=== PATIENT | female | born 1985 | race Caucasian/White ===

== ENCOUNTER 2021-02-09 09:03 | Emergency (ER) | payer OTHER ==
[~2021-02-09] VITALS: Ht 160 cm; Wt 54.4 kg
[~2021-02-09 09:03] MED LIST: ARIP20TA1 PO; HYDR-1096 PO; PARO40TA65 PO; QUET200T PO; [UNRECOGNIZED DRUG - CODE] PO
--- NOTE | 2021-02-09 09:04 | NUR ---
BIBA BLS TO BED 3
[2021-02-09 09:09] VITALS: BP 130/88
--- NOTE | 2021-02-09 09:23 | NUR ---
35 yo f BIBA from home c/o tremors worse than usual x 1 hr. pt on psych meds and usually get tremors as side effect of medications. aylin , denies pain. as per amr, pt aox4 en route to ed. in ed, pt aox1. not in respiratory distress. with noted tremors on left upper extremities and spastic extension of left foot. 2 siderails up. ermd made aware of pt status. pmh: schizophrenia, depression, bipolar meds: propranolol, lithium, haloperidol, trazadone nka
[2021-02-09] MEDS ORDERED: diphenhydrAMINE 50 MG/ML VIAL IVP ONE (09:25)
[2021-02-09] MEDS ORDERED: LORazepam 2 MG/ML VIAL IVP ONE (09:25)
[2021-02-09] MEDS ORDERED: NACL 0.9% 1,000 ML IV ONE (09:25)
--- NOTE | 2021-02-09 10:10 | NUR ---
silvina and novel swabs done. handed to mill laborer.
[2021-02-09 10:20] LABS: BASOPHILS % (AUTO) 0.6 % (0.0-2.0); EOSINOPHILS # (AUTO) 0.3 K/uL (0-0.4); EOSINOPHILS % (AUTO) 4.1 % (0.0-4.0); HEMATOCRIT 37.5 % (36-48); MEAN CORPUSCULAR HEMOGLOBIN 31 pg (27-31); MEAN CORPUSCULAR HGB CONC 35 g/dL (33-37); MEAN CORPUSCULAR VOLUME 89.6 fL (80-94); MONOCYTES # (AUTO) 0.8 K/uL (0.8-1.0); MONOCYTES % (AUTO) 9.9 % (1.7-9.3); NEUTROPHILS % (AUTO) 61.4 % (42.2-75.2); PLATELET COUNT (AUTO) 483 K/uL (140-450); RED BLOOD CELL COUNT(AUTO) 4.19 MIL/uL (4.20-5.40); RED CELL DISTRIBUTION WIDTH 13.3 % (11.6-13.7); WHITE BLOOD COUNT (AUTO) 8.2 K/uL (4.8-10.8)
[2021-02-09 11:41] LABS: ACETAMINOPHEN < 0.5 ug/ml (10-30); ANION GAP 12.5 (8-16); ASPARTATE AMINOTRANSFERASE 20 U/L (15-37); CARBON DIOXIDE 24.5 mmol/L (21-32); CHLORIDE 99 mmol/L (98-107); CREATININE 0.8 mg/dL (0.6-1.3); GFR ARICAN-AMERICAN 104 mL/min (>90); GLUCOSE 91 mg/dL (74-106); LIPASE 80 U/L (73-393); SALICYLATE < 2.8 mg/dL (2.8-20.0); SODIUM SERUM 132 mmol/L (136-145); TOTAL BILIRUBIN 0.2 mg/dL (0.0-1.0); UREA NITROGEN, BLOOD 2 mg/dL (7-18)
[2021-02-09 12:08] LABS: APPEARANCE,URINE CLEAR (CLEAR); BILIRUBIN,URINE NEGATIVE (NEGATIVE); BLOOD, URINE 1+ (NEGATIVE); COLOR,URINE YELLOW (YELLOW); LEUKOCYTE ESTERASE ,URINE TRACE (NEGATIVE); NITRITE, URINE NEGATIVE (NEGATIVE); UGLUCOSE NEGATIVE (NEGATIVE)
[2021-02-09 12:25] LABS: RBC,URINE 11-20 (MOD) /HPF (0-5); WBC,URINE 0-5 /HPF (0-5)
[2021-02-09 12:27] LABS: BARBITURATE, URINE NEGATIVE ng/ml (NEG <=200); BENZODIAZEPINE, URINE POSITIVE ng/mL (NEG <=200); CANNABINOID, URINE NEGATIVE ng/mL (NEG <=50); COCAINE, URINE NEGATIVE ng/mL (NEG <=300); OPIATE, URINE NEGATIVE ng/mL (NEG <=2000); PHENCYCLIDINE SCREEN,URINE NEGATIVE ng/mL (NEG <=25)
[2021-02-09] MEDS ORDERED: DIGOXIN 0.25 MG TAB PO ONE (12:55)
[2021-02-09] MEDS ORDERED: cefTRIAXone 1,000 MG VIAL ONE (13:22)
[2021-02-09] MEDS ORDERED: DIPH25TA53 PO (13:56)
[2021-02-09] MEDS ORDERED: CEPH-588 PO (13:56)
[2021-02-09] MEDS ORDERED: LORA-476 PO (13:56)
[2021-02-09 15:30] VITALS: BP 130/88
--- NOTE | 2021-02-09 15:32 | NUR ---
Patient discharged with v/s stable. Written and verbal after care instructions given and explained. Patient alert, oriented and verbalized understanding of instructions. Ambulatory with steady gait. All questions addressed prior to discharge. ID band removed. Patient advised to follow up with PMD. Rx of CEPHALEXIN, DIPHENHYDRAMINE, LORAZEPAM given. Patient educated on indication of medication including possible reaction and side effects. Opportunity to ask questions provided and answered.
== END 2021-02-09 15:32 | disposition home or self-care (01) ==
LOC: MED 09:03
DX: R25.1 Tremor, unspecified (principal); Z20.822 Contact with and (suspected) exposure to COVID-19; N39.0 Urinary tract infection, site not specified; R41.0 Disorientation, unspecified; F20.9 Schizophrenia, unspecified; F32.9 Major depressive disorder, single episode, unspecified; F17.290 Nicotine dependence, other tobacco product, uncomplicated; Z79.899 Other long term (current) drug therapy
CPT/HCPCS: 36415; 70450; 71045; 80053; 80178; 80305; 81001; 81025; 82550; 83690; 84703; 85025; 87086; 87426; 93005; 96361; 96365; 96375; 99285; G0480; G0482; J0696; J1200; J2060; J7030; J7060; U0003

== ENCOUNTER 2021-10-12 09:00 | Observation (INO) | payer OTHER ==
[~2021-10-12] VITALS: Ht 162.6 cm; Wt 62.6 kg
[~2021-10-12 09:00] MED LIST changes: +CEPH-588 PO; +DIPH25TA53 PO; +LORA-476 PO
--- NOTE | 2021-10-12 09:02 | NUR ---
PT BIBA TAKEN TO ER BED 11.
[2021-10-12] MEDS ORDERED: LORazepam 2 MG/ML VIAL ONE (09:03)
[2021-10-12] MEDS ORDERED: LORazepam 2 MG/ML VIAL IVP ONE ×2 (09:05→09:30)
[2021-10-12] MEDS ORDERED: NACL 0.9% 1,000 ML IV ONE ×2 (09:05→10:15)
--- NOTE | 2021-10-12 09:15 | NUR ---
BLOODWORK, URINE, AND COVID [place] COLLECTED AND WALKED TO LAB
[2021-10-12 09:16] VITALS: BP 154/119
--- NOTE | 2021-10-12 09:20 | NUR ---
PT REMOVED IV DONE BY FIRE IN FIELD. KATHARINA APPLIED AND NEW IV ESTABLISHED
--- NOTE | 2021-10-12 09:20 | NUR ---
36 Y/O FEMALE BIBA FROM HOME ALOC S/P POSSIBLE SYNCOPAL EPISODE UNWITNISSED. PT IS GCS 9. A&OX0. BS 191. IV TO R AC 18G PLACED BY FIRE. PT ACTIVELY HAVING TREMOR LIKE MOVEMENTS. PT UNABLE TO ANSWER QUESTIONS AT THIS TIME, BUT ABLE TO TRACK WITH EYES. PUPPILS DILATED AND SLUGGISH. SKIN DIAPHORTIC AND HOT. SKIN INTACT AND WARM TO TOUCH. UNKNOWN MEDICAL HX AND UNKNOWN AND DRUG USE. PMH: UNOBTAINABLE ALLERGIES: UNOBTAINABLE
[2021-10-12] MEDS ORDERED: diphenhydrAMINE 50 MG/ML VIAL IVP ONE (09:35)
[2021-10-12 09:47] LABS: APPEARANCE,URINE CLEAR (CLEAR); BILIRUBIN,URINE NEGATIVE (NEGATIVE); BLOOD, URINE NEGATIVE (NEGATIVE); COLOR,URINE YELLOW (YELLOW); LEUKOCYTE ESTERASE ,URINE NEGATIVE (NEGATIVE); NITRITE, URINE NEGATIVE (NEGATIVE); UGLUCOSE NEGATIVE (NEGATIVE)
[2021-10-12 09:48] LABS: BASOPHILS # (AUTO) 0.2 K/uL (0.00-0.22); EOSINOPHILS # (AUTO) 0.1 K/uL (0-0.4); EOSINOPHILS % (AUTO) 0.4 % (0.0-4.0); HEMATOCRIT 40.5 % (36-48); HEMOGLOBIN 13.6 g/dL (12.0-16.0); LYMPHOCYTES # (AUTO) 1.8 K/uL (2.5-16.5); LYMPHOCYTES % (AUTO) 9.8 % (20.5-51.1); MEAN CORPUSCULAR HEMOGLOBIN 30 pg (27-31); MEAN CORPUSCULAR HGB CONC 34 g/dL (33-37); MEAN CORPUSCULAR VOLUME 90.2 fL (80-94); MONOCYTES # (AUTO) 1.4 K/uL (0.8-1.0); MONOCYTES % (AUTO) 7.5 % (1.7-9.3); NEUTROPHILS # (AUTO) 14.8 K/uL (1.8-7.7); NEUTROPHILS % (AUTO) 81.3 % (42.2-75.2); PLATELET COUNT (AUTO) 667 K/uL (140-450); RED BLOOD CELL COUNT(AUTO) 4.48 MIL/uL (4.20-5.40); WHITE BLOOD COUNT (AUTO) 18.2 K/uL (4.8-10.8)
--- NOTE | 2021-10-12 09:54 | NUR ---
PT TOOTH FELL OUT BEDSIDE. TOOTH COLLECTED AND PLACED INTO URINE CUP.
--- NOTE | 2021-10-12 10:01 | NUR ---
PT BELONGINGS PUT IN BAG , BAG AT BEDSIDE.
--- NOTE | 2021-10-12 10:02 | NUR ---
PT TAKEN TO CT Addendum: 10/12/21 at 1002 by PHSEP PT TAKEN TO CT VIA UMBERTO
[2021-10-12 10:05] LABS: BARBITURATE, URINE NEGATIVE ng/ml (NEG <=200); BENZODIAZEPINE, URINE NEGATIVE ng/mL (NEG <=200)
[2021-10-12 10:06] LABS: CANNABINOID, URINE NEGATIVE ng/mL (NEG <=50); COCAINE, URINE NEGATIVE ng/mL (NEG <=300); OPIATE, URINE NEGATIVE ng/mL (NEG <=2000); PHENCYCLIDINE SCREEN,URINE NEGATIVE ng/mL (NEG <=25)
--- NOTE | 2021-10-12 10:07 | NUR ---
PT BROTHER BEDSIDE
[2021-10-12 10:15] LABS: ALBUMIN 4.7 g/dL (3.4-5.0); ANION GAP 19.5 (8-16); CARBON DIOXIDE 21.4 mmol/L (21-32); CREATININE 1.3 mg/dL (0.6-1.3); MAGNESIUM 2.2 mg/dL (1.8-2.4); PHOSPHORUS 5.6 mg/dL (2.5-4.9); POTASSIUM 4.9 mmol/L (3.5-5.1); TOTAL BILIRUBIN 0.4 mg/dL (0.0-1.0)
[2021-10-12] MEDS ORDERED: PROP20TA28 PO (10:20)
[2021-10-12] MEDS ORDERED: BENZ2TAB27 PO (10:20)
[2021-10-12] MEDS ORDERED: TRAZ-343 PO (10:20)
[2021-10-12] MEDS ORDERED: HAL5 PO (10:20)
[2021-10-12] MEDS ORDERED: VENL150C4 PO (10:20)
[2021-10-12] MEDS ORDERED: QUET400T PO (10:20)
[2021-10-12] MEDS ORDERED: cefTRIAXone 1,000 MG VIAL ONE (10:21)
[2021-10-12 10:27] LABS: ACETAMINOPHEN < 0.5 ug/ml (10-30); SALICYLATE < 2.8 mg/dL (2.8-20.0)
--- NOTE | 2021-10-12 10:30 | NUR ---
PT BROTHER REQUESTED TO TAKE PT BELONGINGS. BELONGINGS IN BAG AND GIVEN TO BROTHER
[2021-10-12] MEDS ORDERED: ONDANSETRON 4 MG/2 ML VIAL IVP PRN (11:15)
[2021-10-12] MEDS ORDERED: ACETAMINOPHEN 325 MG TAB PO PRN (11:15)
--- NOTE | 2021-10-12 11:18 | NUR ---
CALLED [employer] ARTIST [facility], BED GIVEN 123B, CN STS "PT CANNOT GO TO THE FLOOR BECAUSE PRIMARY NURSE IS DISCHARGING ANOTHER PATIENT."
[2021-10-12] MEDS: NACL 0.9% 1,000 ML IV SCH ×2 (11:40→20:27)
--- NOTE | 2021-10-12 12:03 | NUR ---
pt provided with lunch tray bedside. pt PO challenged bedside and able to swallow without issues
--- NOTE | 2021-10-12 12:08 | NUR ---
Patient will be admitted to care of DR. NICOLE. Admited to TELE. Will go to room 123B. Belongings list completed. Report to CATIE SANTOS.
[2021-10-12 12:15] VITALS: BP 112/62
--- NOTE | 2021-10-12 12:15 | NUR ---
RECEIVED PT FROM ER NURSE VIA UMBERTO. PT IS A&O4. RESPIRATIONS EVEN AND UNLABORED ON ROOM AIR. NO SIGNS OF DISTRESS. DENIES PAIN. PT IS ON TELE MONITOR. HR 122 ST. SKIN IS DRY AND WARM TO TOUCH. IV LAC G18 PATENT AND INTACT INFUSING NS 100 ML/HR. ABDOMEN IS SOFT, NON-DISTENDED WITH ACTIVE BOWEL SOUNDS ON ALL 4 QUADS. NO EDEMA NOTED ON ALL EXTREMITIES. PT IS WITH FAMILY MEMBER AT BED SIDE. PT ATE LUNCH. SAFETY PRECAUTIONS IN PLACE. CALL LIGHT WITHIN REACH. WILL CONTINUE TO MONITOR.
--- NOTE | 2021-10-12 14:12 | NUR ---
PT IN ROOM RESTING WITH FAMILY MEMBERS AT BEDSIDE. BREATHING EVEN AND UNLABORED. NO SIGNS OF DISTRESS NOTED. UPPER EXTREMITIES SHAKING. WILL CONTINUE TO MONITOR.
[2021-10-12] MEDS ORDERED: LORazepam 2 MG/ML VIAL IVP PRN (14:40)
[2021-10-12 16:00] VITALS: BP 152/92
--- NOTE | 2021-10-12 16:05 | NUR ---
SPOKE TO POISON CONTROL REP REGARDING THE PT. WAS ASKED ABOUT SEVERAL LAB TEST RESULTS. SAID THAT HER LAB RESULTS LOOK GOOD. RECOMMENDED ORDER FOR CPK. DR NICOLE WAS INFORMED.
--- NOTE | 2021-10-12 19:20 | NUR ---
ENDORSED PT TO FARROWING MANAGER NURSE FOR CONTINUITY OF CARE. ALL NEEDS MET THROUGHOUT SHIFT. PT IS STABLE.
--- NOTE | 2021-10-12 19:25 | NUR ---
RECEIVED BEDSIDE REPORT FROM DAY SHIFT RN FOR CONTINUITY OF CARE. PT IS AWAKE WITH BROTHER BY BEDSIDE. PT IS NOT IN ANY DISTRESS. BREATHING RHYTHMIC AND UNLABORED. PT HAS LEFT FOREARM 18 GAUGE WITH NS 100 ML/HR. PT HAS NO COMPLAINS AT THIS TIME. CALL LIGHT WITHIN REACH. ALL SAFETY MEASURES TAKEN. WILL CONTINUE TO MONITOR THE PT.
[2021-10-12 20:00] VITALS: BP 159/93
[2021-10-12] MEDS: LITHIUM CARBONATE 300 MG TAB PO SCH (20:17)
[2021-10-12] MEDS: BENZTROPINE 1 MG TAB PO SCH (20:17)
[2021-10-12] MEDS: PROPRANOLOL 20 MG TAB PO SCH (20:17)
--- NOTE | 2021-10-12 20:25 | NUR ---
ALL DUE MEDS GIVEN. NO ADVERSE REACTION NOTED. WILL CONTINUE TO MONITOR THE PT.
[2021-10-13] VITALS: BP 158/93
--- NOTE | 2021-10-13 00:13 | NUR ---
PT IS SLEEPING IN BED COMFORTABLY. PT IS NOT IN ANY DISTRESS. BREATHING EVEN AND UNLABORED. IVF RUNNING PER MD ORDER. CALL LIGHT WITHIN REACH. ALL SAFETY MEASURERS TAKEN. WILL CONTINUE TO MONITOR THE PT.
--- NOTE | 2021-10-13 02:00 | NUR ---
PT PULLED IV OUT. CATHETER IS INTACT. NEW IV INSERTED. 22 GAUGE ON LEFT HAND. PT WAS EDUCATED TO NOT PULL IV OUT AND WHAT THE IVF ARE FOR. PT VERBALIZE UNDERSTANDING. ALL SAFETY MEASURES TAKEN. WILL CONTINUE TO MONITOR THE PT.
[2021-10-13 04:00] VITALS: BP 140/54
--- NOTE | 2021-10-13 04:43 | NUR ---
PT IS AWAKE. PT IS SITTING ON CHAIR IN THE ROOM. PT IS NOT IN ANY ACUTE DISTRESS. PT HAS NO COMPLAINS AND DOES NOT NEED ANYTHING AT THIS MOMENT. CALL LIGHT WITHIN REACH. ALL SAFETY MEASURES TAKEN. WILL CONTINUE TO MONITOR THE PT.
[2021-10-13 06:02] LABS: BASOPHILS % (AUTO) 0.4 % (0.0-2.0); EOSINOPHILS # (AUTO) 0.1 K/uL (0-0.4); EOSINOPHILS % (AUTO) 1.3 % (0.0-4.0); HEMATOCRIT 31.5 % (36-48); HEMOGLOBIN 10.6 g/dL (12.0-16.0); LYMPHOCYTES # (AUTO) 2.8 K/uL (2.5-16.5); LYMPHOCYTES % (AUTO) 25.7 % (20.5-51.1); MEAN CORPUSCULAR HEMOGLOBIN 30 pg (27-31); MEAN CORPUSCULAR HGB CONC 34 g/dL (33-37); MEAN CORPUSCULAR VOLUME 90.2 fL (80-94); MONOCYTES # (AUTO) 1.2 K/uL (0.8-1.0); MONOCYTES % (AUTO) 11.2 % (1.7-9.3); NEUTROPHILS # (AUTO) 6.7 K/uL (1.8-7.7); NEUTROPHILS % (AUTO) 61.4 % (42.2-75.2); PLATELET COUNT (AUTO) 515 K/uL (140-450); RED BLOOD CELL COUNT(AUTO) 3.49 MIL/uL (4.20-5.40); RED CELL DISTRIBUTION WIDTH 13.9 % (11.6-13.7)
[2021-10-13 06:49] LABS: ALBUMIN 3.5 g/dL (3.4-5.0); ANION GAP 11.8 (8-16); CARBON DIOXIDE 22.7 mmol/L (21-32); CREATININE 0.7 mg/dL (0.6-1.3); MAGNESIUM 2.1 mg/dL (1.8-2.4); POTASSIUM 3.5 mmol/L (3.5-5.1); TOTAL BILIRUBIN 0.5 mg/dL (0.0-1.0)
[2021-10-13] MEDS: NACL 0.9% 1,000 ML IV SCH (07:15)
--- NOTE | 2021-10-13 07:23 | NUR ---
ENDORSED PT TO DAY SHIFT RN FOR CONTINUITY OF CARE. PT IS STABLE.
--- NOTE | 2021-10-13 07:56 | NUR ---
RECEIVED PT, AOX3, SINUS TACHY, RESPIRATIONS EVEN AND UNLABORED ON ROOM AIR. PATIENT DENIES PAIN/DISCOMFORT AT THIS TIME. SITTING AT EDGE OF BED WITH NOTED TREMORS. IV FLUIDS INFUSING. FALL AND SAFETY PRECAUTIONS IN PLACE. WILL CONTINUE TO MONITOR.
[2021-10-13 08:00] VITALS: BP 151/96
[2021-10-13] MEDS: PROPRANOLOL 20 MG TAB PO SCH (08:24)
[2021-10-13] MEDS: BENZTROPINE 1 MG TAB PO SCH (08:24)
[2021-10-13] MEDS: VENLAFAXINE 37.5 MG TAB PO SCH ×2 (08:25→13:07)
[2021-10-13] MEDS: LITHIUM CARBONATE 300 MG TAB PO SCH (08:25)
--- NOTE | 2021-10-13 09:43 | NUR ---
SPOKE TO POISON CONTROL AND PROVIDED UPDATES. THEY WILL FOLLOW WHEN LITHIUM LEVELS COME BACK.
--- NOTE | 2021-10-13 11:44 | NUR ---
PATIENT'S IV WAS REMOVED INADVERTENTLY. NEW IV PLACED TO LEFT FOREARM. REPORTS FEELING CALM RIGHT NOW. MOTHER AT BEDSIDE. IV FLUIDS INFUSING.
[2021-10-13 12:00] VITALS: BP 150/98
--- NOTE | 2021-10-13 16:15 | NUR ---
PATIENT HAS BEEN AMBULATING INDEPENDENTLY IN THE ROOM, STEADY ON HER FEET. TOLERATING MEALS WELL NO DIZZINESS/LIGHTHEADEDNESS NOTED. IV FLUIDS INFUSING.
--- NOTE | 2021-10-13 17:03 | NUR ---
RECEIVED DISCHARGE ORDER FROM DR NICOLE WHO EXPLAINED TO PATIENT TO FOLLOW UP OUTPATIENT FOR FURTHER WORKUP. DISCHARGE INSTRUCTIONS PROVIDED, RETURN PRECAUTIONS EXPLAINED TO PATIENT AND BROTHER. IV REMOVED WITH CATHETER TIP INTACT. WHEELCHAIR PROVIDED TO GATO, DISCHARGED HOME WITH BROTHER
== END 2021-10-13 16:50 | disposition home or self-care (01) ==
LOC: MED 09:00 → MTU 11:18
PROVIDERS: ADMIT Internal Medicine; ATTEND Internal Medicine
DX: G93.40 Encephalopathy, unspecified (principal); Z20.822 Contact with and (suspected) exposure to COVID-19; R25.1 Tremor, unspecified; D72.829 Elevated white blood cell count, unspecified; R00.0 Tachycardia, unspecified; R61 Generalized hyperhidrosis; E87.2 Acidosis; F20.9 Schizophrenia, unspecified; F32.A Depression, unspecified; Z79.899 Other long term (current) drug therapy
CPT/HCPCS: 36415; 70450; 72125; 80053; 80178; 80305; 81003; 82550; 82553; 82803; 83735; 83930; 84100; 84484; 85025; 87040; 87081; 87426; 93005; 96361; 96365; 96375; 96376; 99291; G0378; G0480; G0482; J0696; J1200; J2060

== ENCOUNTER 2021-11-28 15:39 | Observation (INO) | payer OTHER ==
[~2021-11-28] VITALS: Ht 162.6 cm; Wt 59.0 kg
[~2021-11-28 15:39] MED LIST changes: +BENZ2TAB27 PO; -CEPH-588 PO; +HAL5 PO; +PROP20TA28 PO; -QUET200T PO; +QUET400T PO; +TRAZ-343 PO; +VENL150C4 PO
[2021-11-28 15:46] VITALS: BP 166/103
[2021-11-28] MEDS ORDERED: NACL 0.9% 1,000 ML IV ONE ×2 (15:50→21:25)
[2021-11-28 16:32] LABS: BASOPHILS % (AUTO) 0.5 % (0.0-2.0); EOSINOPHILS % (AUTO) 0.5 % (0.0-4.0); HEMATOCRIT 38.5 % (36-48); HEMOGLOBIN 13.2 g/dL (12.0-16.0); LYMPHOCYTES # (AUTO) 1.4 K/uL (2.5-16.5); MEAN CORPUSCULAR HEMOGLOBIN 31 pg (27-31); MEAN CORPUSCULAR HGB CONC 34 g/dL (33-37); MEAN CORPUSCULAR VOLUME 89.5 fL (80-94); MONOCYTES # (AUTO) 0.7 K/uL (0.8-1.0); MONOCYTES % (AUTO) 9.8 % (1.7-9.3); NEUTROPHILS # (AUTO) 5.4 K/uL (1.8-7.7); NEUTROPHILS % (AUTO) 71.2 % (42.2-75.2); PLATELET COUNT (AUTO) 694 K/uL (140-450); WHITE BLOOD COUNT (AUTO) 7.5 K/uL (4.8-10.8)
[2021-11-28 16:54] LABS: ALBUMIN 4.2 g/dL (3.4-5.0); ANION GAP 15.5 (8-16); ASPARTATE AMINOTRANSFERASE 19 U/L (15-37); CARBON DIOXIDE 24.5 mmol/L (21-32); CHLORIDE 101 mmol/L (98-107); CREATININE 0.8 mg/dL (0.6-1.3); GFR ARICAN-AMERICAN 103 mL/min (>90); GLUCOSE 113 mg/dL (74-106); SODIUM SERUM 137 mmol/L (136-145); TOTAL BILIRUBIN 0.2 mg/dL (0.0-1.0); UREA NITROGEN, BLOOD 4 mg/dL (7-18)
[2021-11-28 17:00] LABS: SALICYLATE < 2.8 mg/dL (2.8-20.0)
[2021-11-28 17:03] LABS: ACETAMINOPHEN < 0.5 ug/ml (10-30)
[2021-11-28 19:10] LABS: APPEARANCE,URINE CLEAR (CLEAR); BILIRUBIN,URINE NEGATIVE (NEGATIVE); BLOOD, URINE NEGATIVE (NEGATIVE); COLOR,URINE YELLOW (YELLOW); LEUKOCYTE ESTERASE ,URINE NEGATIVE (NEGATIVE); NITRITE, URINE NEGATIVE (NEGATIVE); UGLUCOSE NEGATIVE (NEGATIVE)
[2021-11-28 19:56] LABS: BARBITURATE, URINE NEGATIVE ng/ml (NEG <=200); BENZODIAZEPINE, URINE NEGATIVE ng/mL (NEG <=200); CANNABINOID, URINE NEGATIVE ng/mL (NEG <=50); COCAINE, URINE NEGATIVE ng/mL (NEG <=300); OPIATE, URINE NEGATIVE ng/mL (NEG <=2000); PHENCYCLIDINE SCREEN,URINE NEGATIVE ng/mL (NEG <=25)
[2021-11-28] MEDS ORDERED: HALOPERIDOL 5 MG TAB PO ONE (21:20)
[2021-11-28] MEDS ORDERED: QUEtiapine FUMARATE 100 MG TAB PO SCH (21:20)
[2021-11-28] MEDS ORDERED: BENZTROPINE 2 MG/2 ML AMP IVP ONE (21:20)
[2021-11-28] MEDS: LITHIUM CARBONATE 300 MG TAB PO SCH ×2 (21:59→22:36)
[2021-11-28] MEDS ORDERED: MORPHINE SULFATE 2 MG/ML SYR IVP PRN (22:30)
[2021-11-28] MEDS: NACL 0.9% 1,000 ML IV SCH (22:59)
[2021-11-29] MEDS ORDERED: MELATONIN 3 MG TAB PO PRN ×2 (04:50→05:30)
[2021-11-29] MEDS ORDERED: MELATONIN 3 MG TAB ONE (05:22)
[2021-11-29 07:09] LABS: BASOPHILS # (AUTO) 0.1 K/uL (0.00-0.22); BASOPHILS % (AUTO) 1.2 % (0.0-2.0); EOSINOPHILS # (AUTO) 0.1 K/uL (0-0.4); EOSINOPHILS % (AUTO) 0.6 % (0.0-4.0); HEMATOCRIT 31.1 % (36-48); HEMOGLOBIN 10.4 g/dL (12.0-16.0); LYMPHOCYTES # (AUTO) 2.6 K/uL (2.5-16.5); LYMPHOCYTES % (AUTO) 22.1 % (20.5-51.1); MEAN CORPUSCULAR HEMOGLOBIN 30 pg (27-31); MEAN CORPUSCULAR HGB CONC 34 g/dL (33-37); MEAN CORPUSCULAR VOLUME 90.8 fL (80-94); MONOCYTES # (AUTO) 1.5 K/uL (0.8-1.0); MONOCYTES % (AUTO) 13.1 % (1.7-9.3); NEUTROPHILS # (AUTO) 7.4 K/uL (1.8-7.7); PLATELET COUNT (AUTO) 543 K/uL (140-450); RED BLOOD CELL COUNT(AUTO) 3.42 MIL/uL (4.20-5.40); RED CELL DISTRIBUTION WIDTH 14.4 % (11.6-13.7); WHITE BLOOD COUNT (AUTO) 11.8 K/uL (4.8-10.8)
[2021-11-29 07:39] LABS: ALBUMIN 3.3 g/dL (3.4-5.0); ANION GAP 13.5 (8-16); CARBON DIOXIDE 22.3 mmol/L (21-32); CREATININE 0.6 mg/dL (0.6-1.3); PHOSPHORUS 3.3 mg/dL (2.5-4.9); POTASSIUM 3.8 mmol/L (3.5-5.1); TOTAL BILIRUBIN 0.3 mg/dL (0.0-1.0)
[2021-11-29] MEDS: NACL 0.9% 1,000 ML IV SCH ×3 (07:44→22:30)
[2021-11-29 07:50] VITALS: BP 135/85
[2021-11-29] MEDS: OSELTAMIVIR PHOSPHATE 75 MG CAP PO SCH (10:18)
[2021-11-29 12:00] VITALS: BP 145/96
[2021-11-29 16:00] VITALS: BP 138/73
[2021-11-29] MEDS: QUEtiapine FUMARATE 100 MG TAB PO SCH (21:11)
[2021-11-29] MEDS ORDERED: LORazepam 0.5 MG TAB PO PRN (22:00)
[2021-11-29] MEDS ORDERED: LORazepam 2 MG/ML VIAL IM/IVP PRN (23:00)
[2021-11-30] VITALS: BP 127/51
[2021-11-30 06:00] VITALS: BP 138/73
[2021-11-30] MEDS: NACL 0.9% 1,000 ML IV SCH ×3 (06:30→14:30)
[2021-11-30 07:29] LABS: BASOPHILS # (AUTO) 0.3 K/uL (0.00-0.22); BASOPHILS % (AUTO) 1.5 % (0.0-2.0); EOSINOPHILS # (AUTO) 0.1 K/uL (0-0.4); EOSINOPHILS % (AUTO) 0.3 % (0.0-4.0); HEMATOCRIT 31.2 % (36-48); HEMOGLOBIN 10.6 g/dL (12.0-16.0); LYMPHOCYTES # (AUTO) 2.9 K/uL (2.5-16.5); LYMPHOCYTES % (AUTO) 14.3 % (20.5-51.1); MEAN CORPUSCULAR HEMOGLOBIN 31 pg (27-31); MEAN CORPUSCULAR HGB CONC 34 g/dL (33-37); MEAN CORPUSCULAR VOLUME 90.1 fL (80-94); MONOCYTES # (AUTO) 1.9 K/uL (0.8-1.0); MONOCYTES % (AUTO) 9.2 % (1.7-9.3); NEUTROPHILS % (AUTO) 74.7 % (42.2-75.2); PLATELET COUNT (AUTO) 571 K/uL (140-450); RED BLOOD CELL COUNT(AUTO) 3.46 MIL/uL (4.20-5.40); RED CELL DISTRIBUTION WIDTH 14.1 % (11.6-13.7); WHITE BLOOD COUNT (AUTO) 20.1 K/uL (4.8-10.8)
[2021-11-30 07:39] LABS: ALBUMIN 3.6 g/dL (3.4-5.0); CARBON DIOXIDE 22.8 mmol/L (21-32); CREATININE 0.6 mg/dL (0.6-1.3); POTASSIUM 3.8 mmol/L (3.5-5.1); TOTAL BILIRUBIN 0.4 mg/dL (0.0-1.0)
[2021-11-30 08:00] VITALS: BP 135/93
[2021-11-30] MEDS: OSELTAMIVIR PHOSPHATE 75 MG CAP PO SCH (09:06)
[2021-11-30] MEDS: QUEtiapine FUMARATE 100 MG TAB PO SCH ×2 (09:10→20:48)
[2021-11-30] MEDS ORDERED: PROPRANOLOL 20 MG TAB PO PRN (13:15)
[2021-11-30] MEDS ORDERED: traZODone 50 MG TAB PO PRN (13:15)
[2021-11-30 13:55] VITALS: BP 149/90
[2021-11-30] MEDS: BENZTROPINE 1 MG TAB PO SCH ×2 (13:55→20:46)
[2021-11-30 16:00] VITALS: BP 141/61
[2021-11-30 20:00] VITALS: BP 148/80
[2021-11-30] MEDS: LITHIUM CARBONATE 300 MG TAB PO SCH (20:47)
[2021-11-30] MEDS ORDERED: BENZTROPINE 1 MG TAB PO SCH (21:00)
[2021-11-30] MEDS ORDERED: LITHIUM CARBONATE 300 MG PO SCH (21:00)
[2021-11-30] MEDS ORDERED: HALOPERIDOL 5 MG TAB PO SCH (21:00)
[2021-12-01] VITALS: BP 134/83
[2021-12-01 02:12] VITALS: BP 148/80
[2021-12-01 04:00] VITALS: BP 123/71
[2021-12-01 07:08] LABS: BASOPHILS % (AUTO) 0.2 % (0.0-2.0); EOSINOPHILS # (AUTO) 0.3 K/uL (0-0.4); EOSINOPHILS % (AUTO) 2.8 % (0.0-4.0); HEMATOCRIT 31.7 % (36-48); HEMOGLOBIN 10.9 g/dL (12.0-16.0); LYMPHOCYTES % (AUTO) 32.2 % (20.5-51.1); MEAN CORPUSCULAR HEMOGLOBIN 31 pg (27-31); MEAN CORPUSCULAR HGB CONC 34 g/dL (33-37); MEAN CORPUSCULAR VOLUME 90.5 fL (80-94); MONOCYTES # (AUTO) 1.5 K/uL (0.8-1.0); NEUTROPHILS # (AUTO) 4.5 K/uL (1.8-7.7); PLATELET COUNT (AUTO) 546 K/uL (140-450); RED CELL DISTRIBUTION WIDTH 14.2 % (11.6-13.7); WHITE BLOOD COUNT (AUTO) 9.2 K/uL (4.8-10.8)
[2021-12-01 07:24] LABS: ALBUMIN 3.4 g/dL (3.4-5.0); ANION GAP 12.8 (8-16); CARBON DIOXIDE 23.9 mmol/L (21-32); CREATININE 0.8 mg/dL (0.6-1.3); POTASSIUM 3.7 mmol/L (3.5-5.1); TOTAL BILIRUBIN 0.3 mg/dL (0.0-1.0)
[2021-12-01 08:04] LABS: MONOCYTES % (AUTO) 15.8 % (1.7-9.3)
[2021-12-01] MEDS ORDERED: VENLAFAXINE XR 75 MG CAPER PO SCH (09:00)
[2021-12-01] MEDS: QUEtiapine FUMARATE 100 MG TAB PO SCH (10:07)
[2021-12-01] MEDS: OSELTAMIVIR PHOSPHATE 75 MG CAP PO SCH (10:09)
[2021-12-01] MEDS: LITHIUM CARBONATE 300 MG TAB PO SCH (10:10)
[2021-12-01] MEDS: BENZTROPINE 1 MG TAB PO SCH (10:14)
== END 2021-12-01 11:25 | disposition home or self-care (01) ==
LOC: MED 15:39 → MTU 22:31 → MMU 11-29 05:51 → MTU 11-29 22:50
PROVIDERS: ADMIT Hospitalist; ATTEND Hospitalist
DX: G93.40 Encephalopathy, unspecified (principal); Z20.822 Contact with and (suspected) exposure to COVID-19; G24.01 Drug induced subacute dyskinesia; R00.0 Tachycardia, unspecified; J11.1 Influenza due to unidentified influenza virus with other respiratory manifestations; F20.9 Schizophrenia, unspecified; F31.9 Bipolar disorder, unspecified; F29 Unspecified psychosis not due to a substance or known physiological condition; Z79.899 Other long term (current) drug therapy
CPT/HCPCS: 36415; 70450; 71045; 80053; 80305; 81003; 81025; 82550; 83735; 84100; 84484; 85025; 87081; 87426; 87804; 93005; 96361; 96372; 96374; 99285; G0378; G0480; G0482; J0515; J1630; J2060

== ENCOUNTER 2022-08-29 14:38 | Emergency (ER) | payer OTHER ==
[~2022-08-29] VITALS: Ht 157.5 cm; Wt 59.0 kg
[~2022-08-29 14:38] MED LIST changes: -ARIP20TA1 PO; -DIPH25TA53 PO; -HAL5 PO; -HYDR-1096 PO; +LAM25 PO; -LORA-476 PO; -PARO40TA65 PO
[2022-08-29 14:44] VITALS: BP 145/108
--- NOTE | 2022-08-29 14:54 | NUR ---
Patient ambulated to bed 5 with steady gait.
--- NOTE | 2022-08-29 15:07 | NUR ---
37 y/o female bib self with c/o left sided facial swelling d/t broken tooth x 3 days. Per patient, she was seen at [facility] and told to go to ER to get antibiotic. Patient denies any fever, chills or pain. Medical History: Schizophrenia, Depression NKDA
--- NOTE | 2022-08-29 15:32 | NUR ---
PA Fuentes evaluating patient at bedside.
[2022-08-29] MEDS ORDERED: AMOX-999 PO (15:47)
[2022-08-29] MEDS ORDERED: IBUP-2213 PO (15:47)
[2022-08-29 15:59] VITALS: BP 142/84
--- NOTE | 2022-08-29 15:59 | NUR ---
Patient discharged with v/s stable. Written and verbal after care instructions given. Patient alert, oriented and verbalized understanding of instructions. Ambulatory with steady gait. All questions addressed prior to discharge. ID band removed. Patient advised to follow up with PMD. Rx of Augmentin and Ibuprofen given. Opportunity to ask questions provided and answered.
--- NOTE | 2022-08-29 16:00 | NUR ---
The patient's care was reviewed and supervised by Aileen Roca, RN, RN.
== END 2022-08-29 15:59 | disposition home or self-care (01) ==
LOC: MED 14:38
DX: K04.7 Periapical abscess without sinus (principal); Z79.899 Other long term (current) drug therapy
CPT/HCPCS: 99284

== ENCOUNTER 2023-03-02 10:36 | Emergency (ER) | payer OTHER ==
[~2023-03-02] VITALS: Ht 162.6 cm; Wt 65.8 kg
[~2023-03-02 10:36] MED LIST changes: +AMOX-999 PO; +BENZ-284 PO; -BENZ2TAB27 PO; +IBUP-2213 PO
[2023-03-02 10:38] VITALS: BP 180/86; PULSE 112; RESP 17; TEMP 97.6; O2SAT 98
[2023-03-02] MEDS ORDERED: LORazepam 2 MG/ML VIAL IM ONE (10:45)
[2023-03-02 10:50] VITALS: TEMP 97.6
[2023-03-02] MEDS ORDERED: NACL 0.9% 1,000 ML IV ONE ×2 (11:05→13:50)
[2023-03-02] MEDS ORDERED: LORazepam 2 MG/ML VIAL IVP ONE ×2 (11:05→13:00)
[2023-03-02 11:14] LABS: BASOPHILS # (AUTO) 0.5 K/uL (0.00-0.22); BASOPHILS % (AUTO) 4.5 % (0.0-2.0); EOSINOPHILS # (AUTO) 0.2 K/uL (0-0.4); EOSINOPHILS % (AUTO) 1.9 % (0.0-4.0); HEMATOCRIT 36.2 % (36-48); HEMOGLOBIN 12.4 g/dL (12.0-16.0); LYMPHOCYTES # (AUTO) 2.2 K/uL (2.5-16.5); MEAN CORPUSCULAR HEMOGLOBIN 31 pg (27-31); MEAN CORPUSCULAR HGB CONC 34 g/dL (33-37); MEAN CORPUSCULAR VOLUME 88.8 fL (80-94); MONOCYTES # (AUTO) 1.1 K/uL (0.8-1.0); MONOCYTES % (AUTO) 10.3 % (1.7-9.3); NEUTROPHILS # (AUTO) 6.5 K/uL (1.8-7.7); NEUTROPHILS % (AUTO) 62.3 % (42.2-75.2); PLATELET COUNT (AUTO) 697 K/uL (140-450); RED BLOOD CELL COUNT(AUTO) 4.08 MIL/uL (4.20-5.40); RED CELL DISTRIBUTION WIDTH 15.1 % (11.6-13.7); WHITE BLOOD COUNT (AUTO) 10.4 K/uL (4.8-10.8)
[2023-03-02 12:52] LABS: ALBUMIN 4.1 g/dL (3.4-5.0); ANION GAP 15.6 (8-16); CALCIUM 10.1 mg/dL (8.5-10.1); CARBON DIOXIDE 22.8 mmol/L (21-32); CREATININE 1.1 mg/dL (0.6-1.3); MAGNESIUM 2.1 mg/dL (1.8-2.4); POTASSIUM 3.4 mmol/L (3.5-5.1); TOTAL BILIRUBIN 0.3 mg/dL (0.0-1.0); TOTAL PROTEIN, SERUM 7.7 g/dL (6.4-8.2)
[2023-03-02] MEDS ORDERED: diphenhydrAMINE 50 MG/ML VIAL IVP ONE (13:00)
[2023-03-02 13:40] VITALS: BP 167/101; PULSE 101; RESP 26
[2023-03-02 13:42] VITALS: O2SAT 99
[2023-03-02] MEDS ORDERED: POTASSIUM CHLORIDE 10 MEQ TABER PO ONE (13:55)
[2023-03-02 14:01] LABS: THYROID STIMULATING HORMONE 1.1 uIU/mL (0.34-3.74)
[2023-03-02 14:04] LABS: LACTIC ACID 2.1 mmol/L (0.4-2.0)
[2023-03-02] MEDS ORDERED: BEN50 PO (15:22)
[2023-03-02 16:46] LABS: APPEARANCE,URINE CLEAR (CLEAR); BILIRUBIN,URINE NEGATIVE (NEGATIVE); BLOOD, URINE NEGATIVE (NEGATIVE); COLOR,URINE YELLOW (YELLOW); LEUKOCYTE ESTERASE ,URINE NEGATIVE (NEGATIVE); NITRITE, URINE NEGATIVE (NEGATIVE); PROTEIN,URINE NEGATIVE (NEGATIVE); UGLUCOSE NEGATIVE (NEGATIVE); UROBILINOGEN,URINE 0.2 EU/dL (0.2 - 1)
[2023-03-02 16:52] LABS: AMPHETAMINE, URINE NEGATIVE ng/ml (NEG <=1000); BARBITURATE, URINE NEGATIVE ng/ml (NEG <=200); BENZODIAZEPINE, URINE NEGATIVE ng/mL (NEG <=200); CANNABINOID, URINE NEGATIVE ng/mL (NEG <=50); COCAINE, URINE NEGATIVE ng/mL (NEG <=300); OPIATE, URINE NEGATIVE ng/mL (NEG <=2000); PHENCYCLIDINE SCREEN,URINE NEGATIVE ng/mL (NEG <=25)
== END 2023-03-02 16:06 | disposition home or self-care (01) ==
LOC: MED 10:36
DX: R25.1 Tremor, unspecified (principal); R41.82 Altered mental status, unspecified; I10 Essential (primary) hypertension; F20.9 Schizophrenia, unspecified; Z79.899 Other long term (current) drug therapy
CPT/HCPCS: 36415; 71045; 80053; 80178; 80305; 81003; 81025; 82550; 83605; 83735; 84443; 85025; 87040; 87426; 93005; 96361; 96374; 96375; 96376; 99285; J1200; J2060; J7030